=== PATIENT | female | born 1945 | race Two or more races ===

== ENCOUNTER 2019-07-16 11:10 | Emergency (ER) | payer OTHER ==
[~2019-07-16] VITALS: Ht 152.4 cm; Wt 81.6 kg
[~2019-07-16 11:10] MED LIST: DIOVAN HCT 80-11 TAB PO; GLUCOPHAGE XR500 MG PO; GLUCOTROL10 MG PO; LEVSINEX0.375 M1 PO; PROTONIX40 MG PO; [UNRECOGNIZED DRUG - CODE] TP
== END 2019-07-16 18:50 | disposition home or self-care (01) ==
LOC: ER 11:10
DX: U07.1 COVID-19 (principal); I16.0 Hypertensive urgency; I10 Essential (primary) hypertension; R50.9 Fever, unspecified; R06.02 Shortness of breath; R51 Headache; R42 Dizziness and giddiness

== ENCOUNTER 2021-06-26 16:07 | Emergency (ER) | payer OTHER ==
[~2021-06-26] VITALS: Ht 154.9 cm; Wt 63.5 kg
== END 2021-06-26 19:10 | disposition home or self-care (01) ==
LOC: ER 16:07
DX: I10 Essential (primary) hypertension (principal); E11.9 Type 2 diabetes mellitus without complications; Z79.84 Long term (current) use of oral hypoglycemic drugs

== ENCOUNTER 2021-07-09 22:26 | Emergency (ER) | payer OTHER ==
[~2021-07-09] VITALS: Ht 152.4 cm; Wt 63.0 kg
== END 2021-07-10 03:20 | disposition home or self-care (01) ==
LOC: ER 22:26
DX: I10 Essential (primary) hypertension (principal); E11.9 Type 2 diabetes mellitus without complications; N28.9 Disorder of kidney and ureter, unspecified; Z79.84 Long term (current) use of oral hypoglycemic drugs

== ENCOUNTER 2021-10-03 07:26 | Outpatient (CLI) | payer OTHER | END 2021-10-03 07:35 | disposition home or self-care (01) | LOC: TOM 07:26 | PROVIDERS: ATTEND Internal Medicine Gastroenterology | DX: R63.4 Abnormal weight loss (principal); K59.01 Slow transit constipation; Z12.11 Encounter for screening for malignant neoplasm of colon ==

== ENCOUNTER 2022-08-31 14:06 | Emergency (ER) | payer OTHER ==
[~2022-08-31] VITALS: Ht 152.4 cm; Wt 50.3 kg
== END 2022-08-31 18:12 | disposition home or self-care (01) ==
LOC: ER 14:06
DX: S00.83XA Contusion of other part of head, initial encounter (principal); W18.39XA Other fall on same level, initial encounter; Y93.89 Activity, other specified; Y92.013 Bedroom of single-family (private) house as the place of occurrence of the external cause; I10 Essential (primary) hypertension; E78.00 Pure hypercholesterolemia, unspecified; E11.9 Type 2 diabetes mellitus without complications; Z79.84 Long term (current) use of oral hypoglycemic drugs